=== PATIENT | female | born 1950 | race Two or more races ===

== ENCOUNTER 2023-03-08 12:38 | Emergency (ER) | payer BC ==
[~2023-03-08] VITALS: Ht 162.6 cm; Wt 50.8 kg
[2023-03-08 12:47] VITALS: BP 160/50; TEMP 97.6; O2SAT 98
[2023-03-08] MEDS ORDERED: TDAP [DIPH/PERTUSSIS/TET] 0.5 ML VIAL IM ONE (13:30)
[2023-03-08] MEDS ORDERED: LIDOCAINE HCL/PF 1% 30 ML VIAL TP ONE (13:30)
== END 2023-03-08 14:14 | disposition home or self-care (01) ==
LOC: ER 13:00
DX: S61.211A Laceration without foreign body of left index finger without damage to nail, initial encounter (principal); I10 Essential (primary) hypertension; W26.0XXA Contact with knife, initial encounter; Y93.89 Activity, other specified; Y92.89 Other specified places as the place of occurrence of the external cause; Y99.8 Other external cause status
CPT/HCPCS: 12001; 99282; A6403; J3490